=== PATIENT | female | born 1975 | race Caucasian/White ===

== ENCOUNTER 2020-01-06 09:50 | Outpatient (CLI) | payer OTHER, SELFPAY ==
--- NOTE | 2020-01-06 10:04 | ECG_ITS ---
Measurements Intervals [place] Rate: 74 P: 6 IA: 141 QRS: 53 QRSD: 77 T: 50 QT: 371 QTc: 412 Interpretive Statements SINUS RHYTHM LOW QRS VOLTAGE IN PRECORDIAL LEADS BORDERLINE ECG Electronically Signed On 01-06-2020 11:11:19 CDT by Prashant Schmidt D.O.
== END 2020-01-06 09:51 | disposition home or self-care (01) ==
PROVIDERS: Visit Provider Anesthesiology
DX: Z87.891 Personal history of nicotine dependence (principal); R94.31 Abnormal electrocardiogram [ECG] [EKG]
CPT/HCPCS: 93005

== ENCOUNTER 2020-01-08 01:11 | Outpatient (CLI) | payer OTHER, SELFPAY ==
[2020-01-08 16:32] LABS: SARS-CoV-2 RNA PCR Negative
== END 2020-01-08 01:12 | disposition home or self-care (01) ==
LOC: ANHCOVIDDT 01:11
PROVIDERS: Visit Provider Obstetrics & Gynecology
DX: Z01.812 Encounter for preprocedural laboratory examination (principal); Z20.828 Contact with and (suspected) exposure to other viral communicable diseases
CPT/HCPCS: 87635; C9803; U0003

== ENCOUNTER 2020-01-10 00:32 | Day surgery (SDC) | payer OTHER, SELFPAY ==
[2020-01-03 09:42] VITALS: BMI 40.3
--- NOTE | 2020-01-09 23:54 | PM.IMHP ---
H&P: HPI History of Present Illness Date/Time: 01/09/20 23:54 Chief complaint: Irregular Heavy Bleeding Narrative: 44 y/o with heavy menses lasting 4 days each. She has noticed bleeding so heavy that the blood will overflow the tampon and run down her leg. She has had some intermenstrual bleeding as well. She is here for evaluation and treatment of her problem. Review of Systems Review of Systems: All systems reviewed & are unremarkable except as noted in HPI and below PMFSH Surgical History Surgical History History of cholecystectomy History of left salpingo-oophorectomy History of rotator cuff surgery History of tubal ligation Family History Family History Other COPD (chronic obstructive pulmonary disease) Social History Social History Smoking packs per day: 1 Smoking cigarettes per day: 20.0 Years smoked: 20 Smoking pack-years: 20.00 Smoking status: Former smoker Additional smoking assessment comments: QUIT 2 YEARS AGO Alcohol intake: current Drinks per week: 2 Spiritual care concerns: No Meds Home Medications and Allergies Home Medications Medication Instructions Recorded Confirmed Type ascorbic acid (vitamin C) [Vitamin 1 g PO DAILY 01/03/20 01/03/20 History C] Allergies Allergy/AdvReac Type Severity Reaction Status Date / Time erythromycin base Allergy Unknown Itching Verified 01/03/20 09:44 CEFAZOLIN SODIUM Allergy Severe DIFFICULTY Uncoded 01/03/20 09:44 BREATHING Exam Const: Orientation/consciousness: patient oriented x3 Other: Well-developed, well-nourished female in no acute distress. Neck: Thyroid: thyroid normal Lymphatic: no lymphadenopathy noted (in neck, axilla or inguinal nodes) Resp: Effort & Inspection: normal respiratory effort Auscultation: clear to auscultation bilaterally Cardio: Rate: regular rate Rhythm: regular rhythm Heart sounds: S1 normal heart sound present and S2 normal heart sound present GI: Other: ABD: Soft, nontender, nondistended. No guarding or rebound tenderness. No hepatosplenomegaly. : General: Yes no CVA tenderness Other: External genitalia: normal female hair distribution, without lesion. Urethral meatus: no lesion, non prolapsed. Bladder: no mass, nontender Vagina: well-estrogenized, without lesion or discharge. No cystocele or rectocele. Cervix: no lesion or discharge. Uterus: small, anteverted, freely mobile, nontender Adnexa: no mass or tenderness. Anus/perineum: no lesions, nontender Back/Spine/Pelvis: Back: no CVA tenderness Skin: General skin exam: normal color and no rashes or lesions noted Neuro: General: patient oriented x3 Extrem: Other: Extremities: nontender with no edema Psych: Mental Status: mental status grossly normal Affect: normal affect Assessment and Plan Assessment and plan (1) Menometrorrhagia: Code(s): N92.1 - Excessive and frequent menstruation with irregular cycle Status: Acute Assessment and Plan: I offered her medical versus surgical management. She prefers the latter. Specifically, I have offered her a hysteroscopy with D&C. She understands risks of surgery to include risks of anesthesia, risks of pain, infection, bleeding, blood products, thromboembolic phenomena and damage to adjacent structures such as bowel, bladder, ureters, blood vessels and nerves. She understands all these risks and elects to proceed with surgery.
--- NOTE | 2020-01-10 08:04 | P.PNAN_ITS ---
Anes - Initial Pre Proc Eval Procedure: Operation Date: 01/10/20 15:00 Proposed Procedures p Hysteroscopy, Dilation and Curettage - Lv Mueller MD Date/Time: 01/10/20 08:04 Surgeon: Lv Mueller MD Pre Op Diagnosis: Irregular Heavy Bleeding Patient Data Age: 44 Gender: F Height: 1.68 m Weight: 113.4 kg Allergies Allergy/AdvReac Type Severity Reaction Status Date / Time erythromycin base Allergy Unknown Itching Verified 01/03/20 09:44 CEFAZOLIN SODIUM Allergy Severe DIFFICULTY Uncoded 01/03/20 09:44 BREATHING Home Medications Medication Instructions Recorded Confirmed Type ascorbic acid (vitamin C) [Vitamin 1 g PO DAILY 01/03/20 01/03/20 History C] ECG: Date of Service: 01/06/20 Procedure(s): CA 12 lead EKG Accession Number(s): [id number] cc: ~ Measurements Intervals [place] Rate: 74 P: 6 MT: 141 QRS: 53 QRSD: 77 T: 50 QT: 371 QTc: 412 Interpretive Statements SINUS RHYTHM LOW QRS VOLTAGE IN PRECORDIAL LEADS BORDERLINE ECG Electronically Signed On 01-06-2020 11:11:19 CDT by Prashant Schmidt D.O. Dictated By: Prashant Schmidt DO 01/06/20 1010 Patient hx anesthesia problems: none Family hx anesthesia problems: none PMFSH Past Medical History Medical History (Updated 01/10/20 @ 08:05 by Darnell Brennan MD) Anxiety Menometrorrhagia Morbid obesity with BMI of 40.0-44.9, adult Surgical History Surgical History History of cholecystectomy History of left salpingo-oophorectomy History of rotator cuff surgery History of tubal ligation Family History Family History Other COPD (chronic obstructive pulmonary disease) Social History Social History Smoking packs per day: 1 Smoking cigarettes per day: 20.0 Years smoked: 20 Smoking pack-years: 20.00 Smoking status: Former smoker Additional smoking assessment comments: QUIT 2 YEARS AGO Alcohol intake: current Drinks per week: 2 Spiritual care concerns: No Anes - Eval Final PreProcedure Day of Procedure 01/10/20 08:04 Informed Consent: The patient's anesthetic plan and its attendant risks and benefits were discussed with the patient/family/POA. Questions were solicited and answers provided to the satisfaction of the patient/family/POA.
[2020-01-10] MEDS: ACETAMINOPHEN 500 MG TABLET 1000 MG PO (12:58)
--- NOTE | 2020-01-10 13:15 | WPDHPUPDATE1 ---
History and Physical Update Update Date/Time: 01/10/20 13:15 History and Physical has been reviewed, including an updated exam of the patient. There are NO changes in the patient's condition. Risks, benefits, and alternatives have been discussed and questions answered. Patient agrees to proceed with procedure.
[2020-01-10] MEDS: LACTATED RINGERS 1,000 ML 30 ML IV CONT (13:25)
[2020-01-10 13:35] VITALS: BP 120/78; PULSE 74; RESP 16; TEMP 37; O2SAT 98
--- NOTE | 2020-01-10 14:00 | WPDANESEPPF ---
Anes - Initial Pre Proc Eval Procedure: Operation Date: 01/10/20 15:00 Proposed Procedures p Hysteroscopy, Dilation and Curettage - Lv Mueller MD Date/Time: 01/10/20 14:00 Surgeon: Lv Mueller MD Pre Op Diagnosis: Irregular Heavy Bleeding Patient Data Age: 44 Gender: F Height: 5 ft 6 in Weight: 114.4 kg Last Vital Signs Temp 37.0 C 01/10/20 13:35 Pulse 74 01/10/20 13:35 Resp 16 01/10/20 13:35 BP 120/78 01/10/20 13:35 Pulse Ox 98 01/10/20 13:35 Allergies Allergy/AdvReac Type Severity Reaction Status Date / Time erythromycin base Allergy Unknown Itching Verified 01/10/20 12:55 CEFAZOLIN SODIUM Allergy Severe DIFFICULTY Uncoded 01/10/20 12:55 BREATHING Home Medications Medication Instructions Recorded Confirmed Type ascorbic acid (vitamin C) [Vitamin 1 g PO DAILY 01/03/20 01/10/20 History C] Patient hx anesthesia problems: none Family hx anesthesia problems: none PMFSH Past Medical History Medical History Anxiety Menometrorrhagia Morbid obesity with BMI of 40.0-44.9, adult Surgical History Surgical History History of cholecystectomy History of left salpingo-oophorectomy History of rotator cuff surgery History of tubal ligation Family History Family History Other COPD (chronic obstructive pulmonary disease) Social History Social History Smoking packs per day: 1 Smoking cigarettes per day: 20.0 Years smoked: 20 Smoking pack-years: 20.00 Smoking status: Former smoker Additional smoking assessment comments: QUIT 2 YEARS AGO Alcohol intake: current Drinks per week: 2 Spiritual care concerns: No Anes - Eval Final PreProcedure Day of Procedure 01/10/20 14:00 Patient weight: morbidly obese Heart: regular rate and rhythm Lungs: clear to auscultation Airway: Mallampati scale class II Neurological: alert and oriented Last oral intake: >/= 8 hours ASA classification: III Emergent: no Anesthetic plan: proceed Anesthesia type and monitoring: general GIVS and standard monitoring Informed Consent: The patient's anesthetic plan and its attendant risks and benefits were discussed with the patient/family/POA. Questions were solicited and answers provided to the satisfaction of the patient/family/POA.
--- NOTE | 2020-01-10 15:09 | PM.PROC ---
Procedure Note - Detailed Date of procedure: 01/10/20 Pre-op diagnosis: Irregular Heavy Bleeding Menometrorrhagia Post-op diagnosis: same Procedure performed: Hysteroscopy Dilation and sharp curettage Endometrial polypectomy Description of procedure: The patient was taken to the operating room where she was prepared and draped in the usual sterile fashion in the dorsal lithotomy position. The bladder was drained with a red rubber catheter. A sterile speculum was placed into the vagina. The anterior lip of the cervix was grasped with single-tooth tenaculum. Ten mL of 1% lidocaine was administered in a paracervical block. The cervix was then gently dilated using Hegar dilators until an 8 mm dilator could be passed. Hysteroscopy was performed using sterile saline as a distention medium. Findings are as noted above. The polyp forceps were advanced and the small polyp was easily removed. Sharp curettage was then performed, and endometrial curettings were collected on a Telfa pad and passed off to be sent to pathology. Hemostasis was excellent. A second look was taken with the hysteroscope to ensure complete removal of the polyp. Sponge, lap, needle and instrument counts were correct. The patient was awakened and taken to the recovery room in stable condition. I was present and scrubbed through the entire procedure. Implants: None Anesthesia: MAC and local (1% lidocaine) Surgeon: Lv Mueller MD Estimated blood loss (mL): 5 Drains: No Packing: No Pathology: yes (Endometrial curettings and polyp) Complications: None Condition: stable Disposition: PACU Findings: Small endometrial polyp. Otherwise unremarkable endometrium.
[2020-01-10 15:10] VITALS: BP 110/67; PULSE 78; RESP 10; O2SAT 94
[2020-01-10 15:30] VITALS: BP 122/72; PULSE 62; RESP 20
[2020-01-10 15:50] VITALS: BP 110/70; PULSE 68; RESP 20
== END 2020-01-10 16:01 | disposition home or self-care (01) ==
PROVIDERS: Visit Provider Obstetrics & Gynecology
PROC: 0U5B8ZZ Destruction of Endometrium, Via Natural or Artificial Opening Endoscopic (ICD-10-PCS; CPT 58563; principal; 2020-01-10 15:00)
DX: N92.1 Excessive and frequent menstruation with irregular cycle (principal); N84.0 Polyp of corpus uteri; Z87.891 Personal history of nicotine dependence; E66.01 Morbid (severe) obesity due to excess calories; Z68.41 Body mass index [BMI] 40.0-44.9, adult
CPT/HCPCS: 58558; 87635; 88305; A9270; C9803; J2250; J2405; J2704; J3010; J7030; J7120; U0003

== ENCOUNTER 2020-05-25 09:34 | Outpatient (CLI) | payer OTHER, SELFPAY | END 2020-05-25 09:35 | disposition home or self-care (01) | PROVIDERS: Visit Provider Obstetrics & Gynecology | DX: N92.1 Excessive and frequent menstruation with irregular cycle (principal) | CPT/HCPCS: 36415; 86850; 86900; 86901 ==

== ENCOUNTER 2020-05-27 00:33 | Outpatient (CLI) | payer OTHER, SELFPAY ==
[2020-05-27 18:26] LABS: SARS-CoV-2 RNA PCR Negative
== END 2020-05-27 00:34 | disposition home or self-care (01) ==
LOC: ANHCOVIDDT 00:33
PROVIDERS: Visit Provider Obstetrics & Gynecology
DX: Z01.812 Encounter for preprocedural laboratory examination (principal); Z20.822 Contact with and (suspected) exposure to COVID-19
CPT/HCPCS: C9803; U0003; U0005

== ENCOUNTER 2020-05-30 01:22 | Day surgery (SDC) | payer OTHER, SELFPAY ==
[2020-05-22 17:10] VITALS: BMI 40.3
--- NOTE | 2020-05-29 13:41 | WPDANESEPPF ---
Anes - Initial Pre Proc Eval Procedure: Operation Date: 05/30/20 14:30 Proposed Procedures p Robotic Assisted Total Vaginal Hysterectomy With Bilateral Salpingectomy - Lv Mueller MD Date/Time: 05/29/20 13:41 Surgeon: Lv Mueller MD Pre Op Diagnosis: Menorrhagia, Dysmenorrhea,Pelvic Pain Patient Data Age: 45 Gender: F Height: 1.68 m Weight: 113.4 kg Allergies Allergy/AdvReac Type Severity Reaction Status Date / Time cefazolin Allergy Unknown Unknown Verified 05/30/20 12:40 erythromycin base Allergy Unknown Itching Verified 05/30/20 12:40 Home Medications Medication Instructions Recorded Confirmed Type ascorbic acid (vitamin C) [Vitamin 1 g PO DAILY 01/03/20 05/30/20 History C] Patient hx anesthesia problems: none Family hx anesthesia problems: none PMFSH Past Medical History Medical History (Updated 05/30/20 @ 12:46 by Lv Mueller MD) Anxiety Menometrorrhagia Morbid obesity with BMI of 40.0-44.9, adult Surgical History Surgical History History of cholecystectomy History of left salpingo-oophorectomy History of rotator cuff surgery History of tubal ligation Family History Family History Other COPD (chronic obstructive pulmonary disease) Social History Social History Smoking packs per day: 1 Smoking cigarettes per day: 20.0 Years smoked: 20 Smoking pack-years: 20.00 Smoking status: Former smoker Smoking end date: 03/13/18 Additional smoking assessment comments: QUIT 2 YEARS AGO Alcohol intake: current Drinks per week: 2 Living arrangements: with family Gender identity (if verbalized by the patient): Female Spiritual care concerns: No Anes - Eval Final PreProcedure Day of Procedure 05/29/20 13:41 Patient weight: obese Heart: regular rate and rhythm Lungs: clear to auscultation and normal air movement Airway: Mallampati scale class II Neurological: alert and oriented Last oral intake: >/= 8 hours ASA classification: III Emergent: no Anesthetic plan: proceed Anesthesia type and monitoring: general ETT Informed Consent: The patient's anesthetic plan and its attendant risks and benefits were discussed with the patient/family/POA. Questions were solicited and answers provided to the satisfaction of the patient/family/POA.
[2020-05-30] VITALS (16 sets, daily range): BP systolic 99–129; BP diastolic 66–99; PULSE 66–97; RESP 12–20; TEMP 36.4–37.9; O2SAT 88–100; BMI 40.6
--- NOTE | 2020-05-30 12:43 | PM.IMHP ---
H&P: HPI History of Present Illness Date/Time: 05/30/20 12:43 Chief Complaint: Heavy bleeding Narrative: 45 y/o with heavy menses lasting 4 days each. Sometimes the bleeding is so heavy that blood runs down her leg. She also has intermenstrual bleeding. She had a D&C in January which demonstrated a benign endometrial polyp. However, she has continued to have worsening menstrual flow and pain. During last month's menses, she had enough pain she went to the emergency department. She is now interested in definitive management with hysterectomy. Review of Systems Review of Systems: All systems reviewed & are unremarkable except as noted in HPI and below PMFSH Past Medical History Medical History (Updated 05/30/20 @ 12:46 by Lv Mueller MD) Anxiety Menometrorrhagia Morbid obesity with BMI of 40.0-44.9, adult Surgical History Surgical History History of cholecystectomy History of left salpingo-oophorectomy History of rotator cuff surgery History of tubal ligation Family History Family History Other COPD (chronic obstructive pulmonary disease) Social History Social History Smoking packs per day: 1 Smoking cigarettes per day: 20.0 Years smoked: 20 Smoking pack-years: 20.00 Smoking status: Former smoker Smoking end date: 03/13/18 Additional smoking assessment comments: QUIT 2 YEARS AGO Alcohol intake: current Drinks per week: 2 Living arrangements: with family Gender identity (if verbalized by the patient): Female Spiritual care concerns: No Meds Home Medications and Allergies Home Medications Medication Instructions Recorded Confirmed Type ascorbic acid (vitamin C) [Vitamin 1 g PO DAILY 01/03/20 05/22/20 History C] Allergies Allergy/AdvReac Type Severity Reaction Status Date / Time cefazolin Allergy Unknown Unknown Verified 05/30/20 12:40 erythromycin base Allergy Unknown Itching Verified 05/30/20 12:40 Exam Const: Orientation/consciousness: patient oriented x3 Other: Well-developed, well-nourished female in no acute distress. Neck: Thyroid: thyroid normal Lymphatic: no lymphadenopathy noted (in neck, axilla or inguinal nodes) Resp: Effort & Inspection: normal respiratory effort Auscultation: clear to auscultation bilaterally Cardio: Rate: regular rate Rhythm: regular rhythm Heart sounds: S1 normal heart sound present and S2 normal heart sound present GI: Other: ABD: Soft, nontender, nondistended. No guarding or rebound tenderness. No hepatosplenomegaly. : General: Yes no CVA tenderness Other: External genitalia: normal female hair distribution, without lesion. Urethral meatus: no lesion, non prolapsed. Bladder: no mass, nontender Vagina: well-estrogenized, without lesion or discharge. No cystocele or rectocele. Cervix: no lesion or discharge. Uterus: small, anteverted, freely mobile, nontender Adnexa: no mass or tenderness. Anus/perineum: no lesions, nontender Back/Spine/Pelvis: Back: no CVA tenderness Skin: General skin exam: normal color and no rashes or lesions noted Neuro: General: patient oriented x3 Extrem: Other: Extremities: nontender with no edema Psych: Mental Status: mental status grossly normal Affect: normal affect Assessment and Plan Assessment and plan (1) Menometrorrhagia: Code(s): N92.1 - Excessive and frequent menstruation with irregular cycle Status: Acute Assessment and Plan: A: Menometrorrhagia with dysmenorrhea, refractory to conservative management. P: We reviewed medical as well as surgical management options. She is interested in the latter. Specifically, I have offered her a robotic assisted TVH with bilateral salpingectomies. She says an ovary was removed previously. We plan to leave the other ovary in situ. She
[2020-05-30] MEDS: ACETAMINOPHEN 500 MG TABLET 1000 MG PO (13:03)
[2020-05-30] MEDS: KETOROLAC 15 MG/ML VIAL (*BKC) IV PUSH (13:03)
[2020-05-30] MEDS: LACTATED RINGERS 1,000 ML 30 ML IV CONT ×3 (13:03→17:40)
--- NOTE | 2020-05-30 13:54 | SUR.PREOP ---
CALLED DR RUSSO REGARDING ANTIBIOTICS. PT STATES SHE WAS TOLD WITH A PREVIOUS SURGERY THAT SHE SHOULD NOT TAKE ANCEF ANYMORE. SHE STATES THE REACTION IS UNKNOWN. NOTIFIED DR RUSSO, HE WOULD LIKE THE CLINDA AND GENT IN HIS ORDER SET.
--- NOTE | 2020-05-30 14:05 | WPDHPUPDATE1 ---
History and Physical Update Update Date/Time: 05/30/20 14:05 History and Physical has been reviewed, including an updated exam of the patient. There are NO changes in the patient's condition. Risks, benefits, and alternatives have been discussed and questions answered. Patient agrees to proceed with procedure.
[2020-05-30] MEDS: CLINDAMYCIN 900 MG/D5W 50 ML 900 MG/50 ML PIGGYBACK 50 MG IVPB (14:34)
[2020-05-30] MEDS: GENTAMICIN SULFATE INJ 405 MG in DEXTROSE 5% 100 ML 100 MG IVPB (14:46)
[2020-05-30] MEDS: fentaNYL CITRATE INJ (*CRX) 100 MCG/2 ML VIAL 25 MCG IV PUSH ×5 (16:50→17:37)
--- NOTE | 2020-05-30 17:24 | P.OP_ITS ---
Procedure Note - Detailed Date of procedure: 05/30/20 Pre-op diagnosis: Menorrhagia, Dysmenorrhea,Pelvic Pain Menometrorrhagia Dysmenorrhea Post-op diagnosis: same Procedure performed: Robotic assisted total vaginal hysterectomy with right salpingectomy Description of procedure: The patient was taken to the operating room where general endotracheal anesthesia was administered. She was prepared and draped in the usual sterile fashion in the dorsal lithotomy position. The bladder was drained with Valverde catheter. The cervix was visualized and the anterior lip was grasped using a single-tooth tenaculum. The cervix was gently dilated using Hegar dilators. The DENISE 2 uterine manipulator was then placed and the tenaculum was removed. Gloves were changed and attention was turned to the abdomen. A supraumbilical skin incision was made with the scalpel. The Veress needle was advanced and pneumoperitoneum was administered using carbon dioxide gas. The bladeless trocar was then advanced. Intraperitoneal placement was confirmed using the laparoscope. Lateral ports and an assistant branch operations manager port were all placed using bladeless trocars under direct laparoscopic visualization. She was placed in Trendelenburg position and the patient cart was docked. I assumed the console. The ureters were visualized bilaterally. The round ligament on the right was divided. The Fallopian tube was dissected free, and the uteroovarian ligament was divided. The broad ligament was divided, skeletonizing the uterine artery on the right. The bladder was reflected away. The left side was similarly dissected. Colpotomy was performed circumferentially. The specimen was removed and passed off to be sent to pathology. The vaginal cuff was reapproximated using 0 Vicryl in interrupted [id number] fashion. The pelvis was irrigated copiously using warmed normal saline. Rigorous hemostasis was assured. HemaDerm was applied to the vaginal cuff. The pedicles were inspected once again. The ports were then withdrawn and the gas was allowed to escape. The skin incisions were reapproximated using 4 0 Monocryl in interrupted subcuticular fashion. Dermaflex was applied externally. Sponge, lap, needle and instrument counts were correct. The patient was awakened and taken to the recovery room in stable condition. I was present and scrubbed through the entire procedure. Implants: None Anesthesia: GETA Surgeon: Lv Mueller MD Estimated blood loss (mL): 50 Drains: Yes (valverde) Packing: No Pathology: yes (Uterus, cervix, right Fallopian tube) Complications: None Condition: stable Disposition: PACU Findings: Surgically absent left tube and ovary. Right ovary unremarkable. Right tube with evidence of prior tubal ligation. Uterus a little enlarged, otherwise unremarkable.
[2020-05-30] MEDS: KETOROLAC 30 MG/ML VIAL (*BKC) IV PUSH (18:52)
[2020-05-30] MEDS: DEXTROSE 5%/0.45% SOD CHL 1,000 ML 125 ML IV CONT (18:52)
[2020-05-30] MEDS: HYDROcodone/acetaminophen (*CRX) 10-325 MG TABLET 1 TAB PO ×2 (19:06→22:28)
[2020-05-30] MEDS: ENOXAPARIN 40 MG/0.4 ML SYRINGE SUB-Q (21:33)
[2020-05-31] MEDS: HYDROcodone/acetaminophen (*CRX) 10-325 MG TABLET 1 TAB PO ×3 (02:39→10:39)
[2020-05-31] MEDS: KETOROLAC 30 MG/ML VIAL (*BKC) IV PUSH (02:40)
[2020-05-31 04:45] VITALS: BP 98/60; PULSE 68; RESP 15; TEMP 36.9; O2SAT 93
[2020-05-31 05:29] LABS: Basophils Percent Auto 0.1 % (0.2-1.2); Hematocrit 35.3 % (37.0-47.0); Immature Granulocyte Absolute 0.05 K/mm3 (0.00-0.031); Immature Granulocyte Percent A 0.4 % (0-0.5); Lymphocytes Absolute Auto 1.08 K/mm3 (0.9-3.2); Lymphocytes Percent Auto 8.3 % (18.3-44.2); Mean Corpuscular Hemoglobin 31.3 pg (26-34); Mean Corpuscular Volume 91.9 fl (80-100); Mean Platelet Volume 10.7 fl (7.4-10.4); Monocytes Absolute Auto 0.5 K/mm3 (0.1-0.6); Monocytes Percent Auto 3.9 % (2.6-8.5); Neutrophils Absolute Auto 11.4 K/mm3 (1.3-6.7); Neutrophils Percent Auto 87.3 % (45.5-73.1); Platelet Count Result 285 k/mm3 (150-375); Red Blood Count 3.84 M/mm3 (4.2-5.4); Red Cell Distribution Width 12.6 % (11.5-14.5); White Blood Count 13.1 K/mm3 (4.5-10.0)
[2020-05-31] MEDS: SIMETHICONE 80 MG TAB.CHEW PO ×2 (07:15→10:40)
--- NOTE | 2020-05-31 07:15 | PC.NURSE ---
Pt introductions made and plan of care discussed per post op senior credit analyst surgery, pain management, daily care activities and pending discharge to home. PT verbalized understanding of such care.
--- NOTE | 2020-05-31 07:18 | PM.OBPNVD ---
OB - PN: Subj Subjective Date/time seen: 05/31/20 07:18 Patient comments: no complaints and pain well controlled OB - PN: Obj Data Labs CBC & Chem 7: 05/31/20 04:53 Labs: Laboratory Results - last 24 hr 05/31/20 04:53 WBC 13.1 H RBC 3.84 L Hgb 12.0 Hct 35.3 L MCV 91.9 MCH 31.3 MCHC 34.0 RDW 12.6 Plt Count 285 MPV 10.7 H Immature Gran % (Auto) 0.4 Neut % (Auto) 87.3 H Lymph % (Auto) 8.3 L [place] % (Auto) 3.9 Eos % (Auto) 0.0 Baso % (Auto) 0.1 L Lymph # (Auto) 1.08 [place] # (Auto) 0.5 Eos # (Auto) 0.0 Baso # (Auto) 0.0 Abs Immat Gran (auto) 0.05 H Absolute Neuts (auto) 11.4 H Absolute Nucleated RBC 0.0 Nucleated RBC % 0.0 OB - PN A/P Plan day: 1 Plan: discharge home and follow up 6 weeks (2 weeks) Time Spent With Patient Time: Total time spent is greater than 50% in coordination of care (as documented) at patient's floor/unit and/or counseling patient: Time with patient: less than 15 minutes Review of Systems Review of Systems: All systems reviewed & are unremarkable except as noted in HPI and below Exam Const: General: no acute distress Eyes: General: appearance normal, both eyes and all related structures Neck: Neck: supple and no JVD Thyroid: thyroid normal Resp: Effort & Inspection: normal respiratory effort Auscultation: clear to auscultation bilaterally Cardio: Rate: regular rate Rhythm: regular rhythm GI: Inspection: normal to inspection and incision (all cdi) : General: Yes bladder normal to palpation External Female Exam: normal external appearance Speculum Exam - Vagina: normal vaginal discharge and No vaginal bleeding Speculum Exam - Cervix: nontender Bimanual exam- vagina & uterus: bladder normal to palpation and No Cervical tenderness present OB/external & speculum: No vaginal bleeding Skin: General skin exam: no rashes or lesions noted Extrem: General: normal to inspection and no edema Psych: Mental Status: mental status grossly normal Affect: normal affect
--- NOTE | 2020-05-31 07:19 | P.DS_ITS ---
DS: Admitting Diagnosis Admitting Diagnosis Admitting Diagnosis: Menorrhagia DS: Summary Hospital Course Hospital Course: unremarkable. Time Spent with Patient Time attestation: Total time spent providing and/or coordinating discharge services: patient underwent unremarkable robotic total vaginal hysterectomy and right salpingectomy. Postop course was unremarkable. She remained afebrile. She was up, went in the difficulty, passing gas, eating, ambulating, and general without complaints Exam Const: General: no acute distress Eyes: General: appearance normal, both eyes and all related structures Neck: Neck: supple and no JVD Thyroid: thyroid normal Resp: Effort & Inspection: normal respiratory effort Auscultation: clear to auscultation bilaterally Cardio: Rate: regular rate Rhythm: regular rhythm GI: Inspection: non-distended GI Palp: Yes Soft to palpation, No Tenderness to palpation present (GI) and No Guarding due to palpation present (GI) Auscultation: normal bowel sounds : General: Yes bladder normal to palpation External Female Exam: normal external appearance Speculum Exam - Vagina: normal vaginal discharge and No vaginal bleeding Speculum Exam - Cervix: nontender Bimanual exam- vagina & uterus: bladder normal to palpation and No Cervical tenderness present OB/external & speculum: No vaginal bleeding Skin: General skin exam: no rashes or lesions noted Extrem: General: normal to inspection and no edema Psych: Mental Status: mental status grossly normal Affect: normal affect DS: Data Data Completed and Pending Pending studies at discharge: Pending at discharge 05/30/20 15:44 Surgical [PTH] Routine Labs on day of discharge: Labs from last 24 hours 05/31/20 04:53 WBC 13.1 H RBC 3.84 L Hgb 12.0 Hct 35.3 L MCV 91.9 MCH 31.3 MCHC 34.0 RDW 12.6 Plt Count 285 MPV 10.7 H Immature Gran % (Auto) 0.4 Neut % (Auto) 87.3 H Lymph % (Auto) 8.3 L [place] % (Auto) 3.9 Eos % (Auto) 0.0 Baso % (Auto) 0.1 L Lymph # (Auto) 1.08 [place] # (Auto) 0.5 Eos # (Auto) 0.0 Baso # (Auto) 0.0 Abs Immat Gran (auto) 0.05 H Absolute Neuts (auto) 11.4 H Absolute Nucleated RBC 0.0 Nucleated RBC % 0.0 Discharge Plan Discharge Patient Disposition: Home, Self-Care Discharge Instructions: Call or return if temperature above 100.4? F, increased abdominal pain, increased vaginal bleeding or any new problems. Stand Alone Forms: General Discharge Instructions Follow-up/Referrals: Lv Mueller MD [Physician] - 2 Weeks Discharge Medications: New hydrocodone-acetaminophen [[place]] 5-325 mg tablet 1 - 2 tablet PO Q6H PRN (Reason: pain) Qty: 30 RF: 0 No Action ascorbic acid (vitamin C) [Vitamin C] 1,000 mg Tablet 1 g PO DAILY RF: 0
[2020-05-31] MEDS: IBUPROFEN 600 MG TABLET PO (08:23)
[2020-05-31 08:30] VITALS: BP 112/71; PULSE 70; RESP 18; TEMP 36.9; O2SAT 99
--- NOTE | 2020-05-31 09:16 | P.PNAN_ITS ---
Anes - Prog Note Post-Op Date/Time: 05/31/20 09:16 Cardiovascular status: normal Respiratory status: normal Airway patency: baseline Mental status: baseline Post-Op hydration status: normal Vital Signs: Last Vital Signs Temp 36.9 C 05/31/20 04:45 Pulse 68 05/31/20 04:45 Resp 15 05/31/20 04:45 BP 98/60 L 05/31/20 04:45 Pulse Ox 93 05/31/20 04:45 Pain Score (VAS): 0 I/O: Intake & Output 05/30/20 05/31/20 05/31/20 23:59 07:59 15:59 Intake Total 1550 200 Output Total 930 925 250 Balance 046 -213 -215 Laboratory Tests 05/31/20 04:53 05/31/20 04:53 WBC 13.1 H RBC 3.84 L Hgb 12.0 Hct 35.3 L MCV 91.9 MCH 31.3 MCHC 34.0 RDW 12.6 Plt Count 285 MPV 10.7 H Immature Gran % (Auto) 0.4 Neut % (Auto) 87.3 H Lymph % (Auto) 8.3 L [place] % (Auto) 3.9 Eos % (Auto) 0.0 Baso % (Auto) 0.1 L Lymph # (Auto) 1.08 [place] # (Auto) 0.5 Eos # (Auto) 0.0 Baso # (Auto) 0.0 Abs Immat Gran (auto) 0.05 H Absolute Neuts (auto) 11.4 H Absolute Nucleated RBC 0.0 Nucleated RBC % 0.0 Post-procedural complaints: none Patient Feedback: Patient satisfied with anesthetic care.
--- NOTE | 2020-05-31 10:15 | PC.NURSE ---
Pt received discharge instructions per protocol and verbalized understanding of such care.
--- NOTE | 2020-05-31 10:30 | PC.NURSE ---
PT discharged to home via wheelchair to waiting vehicle. Spouse is accompanying pt home. Discharge follow up appts confirmed.
== END 2020-05-31 10:30 | disposition home or self-care (01) ==
LOC: ANHSURGERY 17:29 → ANHOB2 19:00
PROVIDERS: Visit Provider Obstetrics & Gynecology
PROC: (CPT 58552; principal; 2020-05-30 14:30)
DX: N92.0 Excessive and frequent menstruation with regular cycle (principal); R10.2 Pelvic and perineal pain; N94.6 Dysmenorrhea, unspecified; F41.9 Anxiety disorder, unspecified; E66.9 Obesity, unspecified; Z68.41 Body mass index [BMI] 40.0-44.9, adult; Z87.891 Personal history of nicotine dependence; N80.0 Endometriosis of uterus; D25.1 Intramural leiomyoma of uterus; N73.6 Female pelvic peritoneal adhesions (postinfective)
CPT/HCPCS: 58552; S2900; 36415; 85025; 88307; 99199; A9270; C9803; J1100; J1580; J1650; J1885; J2250; J2405; J2704; J3010; J7030; J7120; U0003; U0005